=== PATIENT | male | born 1955 | race Caucasian/White ===

== ENCOUNTER 2017-02-15 07:45 | Day surgery (SDC) | payer MEDICARE, OTHER ==
[~2017-02-15 07:45] MED LIST: ASPI-1159 PO; ATOR20TA PO; CROM10DR2 EACHEYE; ESOM20CA PO; FURO-151 PO; INSU100I3 SQ; ISOS10TA2 PO; NPH,100V SQ; PENT400T2 PO; ROSU40TA PO
[2017-02-15] MEDS ORDERED: IODIXANOL 320MG/ML 100 ML BOTTLE IV ONE ×2 (07:54→09:24)
[2017-02-15] MEDS ORDERED: LIDOCAINE HCL 1% 20ML VIAL (Pyxis) INJ ONE ×3 (07:55→09:00)
[2017-02-15] MEDS ORDERED: SEVE800T8 PO (08:14)
[2017-02-15] MEDS ORDERED: BISO5TAB13 PO (08:14)
[2017-02-15] MEDS ORDERED: AMLO10TA80 PO (08:14)
[2017-02-15] MEDS ORDERED: MIDAZOLAM HCL 2 MG/2 ML VIAL ONE (08:38)
[2017-02-15] MEDS ORDERED: FENTANYL CITRATE/PF 50MCG/ML 2ML VIAL ONE (08:38)
[2017-02-15] MEDS ORDERED: ATROPINE SULFATE 1MG/10ML SYR IV PRN (09:45)
[2017-02-15] MEDS ORDERED: ACETAMINOPHEN 325MG TABLET PO PRN (09:45)
[2017-02-15] MEDS ORDERED: HEPARIN SODIUM 1,000 UNIT/1ML VIAL IV ONE (11:09)
[2017-02-15] MEDS ORDERED: NICARDIPINE 100MCG/ML 10ML VIAL (CATH LAB) IV ONE (11:09)
[2017-02-15] MEDS ORDERED: NITROGLYCERIN 50MCG/ML 10ML VIAL (CATH LAB) IV ONE (11:09)
== END 2017-02-15 13:00 | disposition home or self-care (01) ==
LOC: CCL 07:45
PROVIDERS: ATTEND Specialist
DX: I25.10 Atherosclerotic heart disease of native coronary artery without angina pectoris (principal); I12.0 Hypertensive chronic kidney disease with stage 5 chronic kidney disease or end stage renal disease; E11.22 Type 2 diabetes mellitus with diabetic chronic kidney disease; N18.6 End stage renal disease; Z99.2 Dependence on renal dialysis
CPT/HCPCS: 82962; 93458; 99152; 99153; C1769; C1887; C1893; J1644; J2250; J3010; J3490; Q9967